=== PATIENT | male | born 1965 | race Caucasian/White ===

== ENCOUNTER 2018-11-10 01:10 | Emergency (ER) | payer BC ==
[2018-11-10] MEDS ORDERED: DIPH/PERTUSS(ACELL)/TETANUS VAC/PF 0.5 ML SYR (>=10YO) IM ONE (03:47)
[2018-11-10] MEDS ORDERED: ONDANSETRON 4 MG TAB.RAPDIS PO ONE (03:48)
[2018-11-10] MEDS ORDERED: AMOXICILLIN TRIHYDRATE 500 MG CAPSULE PO ONE (03:48)
[2018-11-10] MEDS ORDERED: OXYCODONE-ACETAMINOPHEN 5-325 MG TABLET PO ONE (03:48)
[2018-11-10] MEDS ORDERED: AMOXICILLIN TR/POT CLAVULANATE 500-125 MG TAB PO ONE (03:48)
--- NOTE | 2018-11-10 03:52 | ER Document Report ---
ED Hand/Wrist Injury - General Chief Complaint: Finger Injury Stated Complaint: LEFT INDEX FINGER INJURY Time Seen by Provider: 11/10/18 03:41 Notes: Patient is a 53-year-old male that comes to the emergency department for chief complaint of injury to the left index finger. He states he was cleaning a paint sprayer when he accidentally injected his left index finger. This happened around 1530 today. He states he used a knife and cut the puncture slightly in a horizontal line over the palmar aspect of the finger, squeezing out some paint. Swelling, pain, and redness increased so he came to the emergency department. He is not a diabetic. He is not up to date on his tetanus. He denies any other injuries. TRAVEL OUTSIDE OF THE [place] IN LAST 30 DAYS: No - Related Data Allergies/Adverse Reactions: Penicillins Allergy (Verified 11/10/18 04:51) Past Medical History - General Information source: Patient - Social History Smoking Status: Never Smoker Chew tobacco use (# tins/day): No Drug Abuse: None Lives with: Family Family History: Reviewed & Not Pertinent Patient has suicidal ideation: No Patient has homicidal ideation: No - Past Medical History Cardiac Medical History: Reports: Hx Hypertension Renal/ Medical History: Denies: Hx Peritoneal Dialysis GI Medical History: Reports: Hx Gastroesophageal Reflux Disease - Immunizations Immunizations up to date: No Hx Diphtheria, Pertussis, Tetanus Vaccination: Yes Review of Systems - Review of Systems Constitutional: No symptoms reported EENT: No symptoms reported Cardiovascular: No symptoms reported Respiratory: No symptoms reported Gastrointestinal: No symptoms reported Genitourinary: No symptoms reported Male Genitourinary: No symptoms reported Musculoskeletal: See HPI Skin: No symptoms reported Hematologic/Lymphatic: No symptoms reported Neurological/Psychological: No symptoms reported Physical Exam - Vital signs Vitals: Temp Pulse Resp BP Pulse Ox 97.6 F 64 18 169/103 H 97 11/10/18 01:17 11/10/18 01:17 11/10/18 01:17 11/10/18 01:11/10/18 01:17 - Notes Notes: GENERAL: Alert, interacts well. Mildly uncomfortable. HEAD: Normocephalic, atraumatic. EYES: Pupils equal, round, and reactive to light. Extraocular movements intact. ENT: Oral mucosa moist, tongue midline. Oropharynx unremarkable. Airway patent. LUNGS: Clear to auscultation bilaterally, no wheezes, rales, or rhonchi. No respiratory distress. HEART: Regular rate and rhythm. No murmur ABDOMEN: Soft, non-tender. Non-distended. Bowel sounds present in all 4 quadrants. GENITOURINARY: Deferred EXTREMITIES: Left index finger is erythematous, swollen, tender. Limited range of motion. There is a small incision just below the DIP over the palmar aspect. This is superficial. No current drainage or bleeding from this area. Cap refill present, sensation slightly reduced but still intact. Remaining hand examination is unremarkable. BACK: no cervical, thoracic, lumbar midline tenderness. No saddle anesthesia, normal distal neurovascular exam. Moves all extremities in full range of motion. NEUROLOGICAL: Alert and oriented x3. Normal speech. Cranial nerves II through XII grossly intact. PSYCH: Normal affect, normal mood. SKIN: Warm, dry, normal turgor. Course - Re-evaluation Re-evalutation: Patient's injury is very concerning with hydraulics high-pressure injury and redness of the finger, pain over the area with limited range of motion. X-ray performed and is unremarkable other than soft tissue swelling. Tetanus updated, starting on Ancef. I did discuss with Dr. Ventura, he recommends consultation with a hand surgeon for potential transfer. Patient is fine with either [place] or [place], requests [place] attempt first due to slightly closer proximity. 11/10/18 05:50 [facility] called back, they do not have hand specialty coverage. Called and spoke with plastic surgeon Dr. Bar, he does recommend ED to ED transfer so patient can have surgery today. I did discuss this with patient and friend at bedside. I explained that patient might still lose the finger but this is his best chance to be able to salvage it. Patient states agreement with plan. Given additional pain medicine on request. Wound was cleaned and dressed with Xeroform, patient is elevating the hand with towels. 11/10/18 08:07 We have been unable to obtain ground transport or helicopter transport up to this point. We do have available fixed wing transport. I did discuss with Dr. Mac, because patient will likely lose his finger if nothing is done and this does meet emergent surgical criteria patient will be flown. Patient states agreement with this plan. He was reevaluated at bedside at this time, no significant change from prior, stable for transport. - Vital Signs Vital signs: Temp Pulse Resp BP Pulse Ox 97.6 F 64 18 169/103 H 97 11/10/18 01:17 11/10/18 01:17 11/10/18 01:17 11/10/18 01:17 11/10/18 01:17 Discharge - Discharge Clinical Impression: High-pressure injection injury of finger Qualifiers: Encounter type: initial encounter Laterality: left Qualified Code(s): S69.82XA - Other specified injuries of left wrist, hand and finger(s), initial encounter Condition: Stable Disposition: [facility]
--- NOTE | 2018-11-10 04:36 | RADIOLOGY REPORT (SQ) ---
EXAM DESCRIPTION: XR FINGERS COMPLETED DATE/TME: 11/10/2018 03:47 CLINICAL HISTORY: 53 years Male, pressure injury, swelling, pain COMPARISON: None. Findings: 0.3 cm chronic erosion at the lateral aspect of the right second proximal phalangeal head. Mild diffuse swelling and fine amorphous calcification-foreign body of the anterior right second finger at the level of the middle and distal phalanges. Bones, joints, and soft tissues of the RIGHT XR FINGERS appear otherwise unremarkable. IMPRESSION: Swelling. Small chronic erosion of the right second proximal phalanx.
[2018-11-10] MEDS ORDERED: CEFAZOLIN INJ 1 GM VIAL IM ONE (04:50)
[2018-11-10] MEDS ORDERED: ONDANSETRON HCL INJ/PF 4 MG/2 ML SDV IV ONE (06:09)
[2018-11-10] MEDS ORDERED: HYDROMORPHONE HCL INJ/PF 2 MG/ML AMPULE IV ONE (06:09)
[2018-11-10 08:25] VITALS: BP 160/93
== END 2018-11-10 08:45 | disposition short-term general hospital (02) ==
LOC: ER 01:10
DX: S69.92XA Unspecified injury of left wrist, hand and finger(s), initial encounter (principal); T70.4XXA Effects of high-pressure fluids, initial encounter; X58.XXXA Exposure to other specified factors, initial encounter; Y93.89 Activity, other specified; Z88.0 Allergy status to penicillin; Z23 Encounter for immunization
CPT/HCPCS: 99285; 96372; 90471; 96374; 96375; 73140; 90715; J0690; S0119; J1170; J2405